=== PATIENT | male | born 1990 | race Caucasian/White ===

== ENCOUNTER 2017-08-01 20:57 | Emergency (ER) | END 2017-08-02 01:30 | disposition home or self-care (01) ==

== ENCOUNTER 2017-10-30 12:18 | Emergency (ER) | END 2017-10-30 16:05 | disposition home or self-care (01) ==

== ENCOUNTER 2018-02-27 12:05 | Emergency (ER) | END 2018-02-27 13:40 | disposition home or self-care (01) ==